=== PATIENT | male | born 1955 | race African-American/Black ===

== ENCOUNTER 2017-09-17 19:41 | Inpatient (IN) | payer OTHER ==
[2017-09-17] VITALS (8 sets, daily range): BP systolic 86–106; BP diastolic 39–66
[~2017-09-17] VITALS: Ht 188 cm; Wt 92.7 kg
--- NOTE | ~2017-09-17 | EKG ---
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 ischemia Compared to ECG 10/04/2015 02:22:42 No significant change was found Electronically Signed On 09-18-2017 8:10:55 CDT by Wade Alexander [email or web address] <ELECTRONICALLY SIGNED> By: Wade Alexander MD, FAC 09/18/17 0810 00 00 Wade Alexander MD, [facility] /EPI
--- NOTE | ~2017-09-17 | HC ---
[facility] [place] [address] CONSULTATION Name: CHRIS RENAE Room #: 202-P [facility] IN ..#: [id number] Admission: 09/17/17 Attend Phys: Vasiliy Flower DO Discharge: 09/20/17 Date of : 55 Report #: [id number] THIS REPORT FOR: //name// CC: Mark Gutierrezjaylyn Sharon DATE OF SERVICE: 09/17/2017 NEPHROLOGY CONSULTATION ATTENDING PHYSICIAN: Currently unknown. REASON FOR CONSULTATION: Elevated creatinine. HISTORY OF PRESENT ILLNESS: The patient is an extremely poor historian. He resides in a locked down unit for schizophrenic at [facility]. He has been found to have worsening and depressing mental status, and was brought to the Emergency Room. He was found at the [facility] rather hypotensive with systolic blood pressure poor in the 50s, given fluids, it is currently in the 80s and seen in the Emergency Room. He was quite confused, not really able to give any meaningful history. He is awake and alert, able to follow simple requests. PAST MEDICAL HISTORY: He apparently has history of schizophrenia, but he is also on lithium, so I am not sure what the psychiatric diagnosis might be. He has history of atrial flutter, hypertension, atrial fibrillation. He has got a colostomy. Some history of possible Parkinson disease. MEDICATIONS: At the facility includes clozapine 100 mg daily, diltiazem 120 mg daily, lisinopril 40 mg daily, metoprolol 75 mg daily, omeprazole 20 mg daily, Cogentin 1 mg daily, Depakote 1000 mg at bedtime, trazodone 150 mg at bedtime. He has Ceftin 250 mg b.i.d., lithium 150 mg b.i.d., Sinemet 25/100 t.i.d., Depakote 500 mg b.i.d. in addition to 1000 mg at bedtime previously reported, Haldol p.r.n., Ativan p.r.n. ALLERGIES: REPORTEDLY TO PENICILLIN. SOCIAL HISTORY: As far as we know, no cigarettes or alcohol. Retired. Resides at the facility in the locked down unit. REVIEW OF SYSTEMS: Really cannot be taken. The patient does not have any complaints. He is hungry. He is not short-winded. He is not having any chest pain, appears to be rather weak and the rest of the history really cannot be adequately taken. [facility] [address] [place] [address] CONSULTATION Name: CHRIS RENAE Tam Room #: 202-P [facility] IN M.R.#: [id number] Admission: 09/17/17 Attend Phys: Vasiliy Flower DO Discharge: 09/20/17 Date of : 55 Report #: [id number] PHYSICAL EXAMINATION: VITAL SIGNS: Blood pressure 80/40. SKIN: Slightly cool, slightly decreased turgor. SKELETAL: Well-developed, well-nourished, nonobese. HEENT: Extraocular movements are full. No scleral icterus. Hearing and vision intact. Mucous membranes are dry. NECK: The neck veins are flat. CHEST: Clear. HEART: Regular. Pulse is about 60. ABDOMEN: Soft and nontender. There is a colostomy bag in place. EXTREMITIES: Show no edema. LABORATORY DATA: Urinalysis showed clumps of white cells, loaded white cells and bacteria. Hemoglobin is 11, white count 8.1. There were no bands. Sodium 131, potassium 6.2, chloride 96, bicarbonate 13, BUN is 130, creatinine is 13.6. Lactic acid 1.2, AST very mildly elevated, ALT mildly depressed. Bilirubin is not elevated. The albumin is 3.5, glucose is 82. Anion gap is 22. ASSESSMENT AND PLAN: 1. Renal insufficiency. We have some data from a couple of years ago, which indicated a creatinine at that time was 1.3. He has been on lithium, but again, that was just 2 years ago and the creatinine was relatively normal, as was the BUN. Volume depletion is evident the etiology of which is not clear. He has a urinary infection, but does not appear to be overly septic without a big anion gap, without lactic acidosis, without bands on his white blood count, still he will be treated for sepsis with copious IV fluids and with broad-spectrum antibiotics. Cultures have been taken. Of course, he is on a high dose of lisinopril and that is probably also contributing to his renal insufficiency and the presence of marked volume depletion. The hyperkalemia should be reasonably easily treatable. There are absolutely no arrhythmias. VA interval is not prolonged and the QRS is not widened. High dose albuterol will be given along with some IV bicarbonate and fluid resuscitation underway. I will also give him some bicarbonate-containing fluids after he has received a couple of liters of saline for volume resuscitation. We will also need to rule out lithium toxicity, high lithium levels may even require dialysis, but these will be depending on the levels and we will go from there in that regard, and hopefully, we will see recovery with these measures. 2. History of hypertension. 3. History of schizophrenia. <ELECTRONICALLY SIGNED> By: Koffi Fink MD 09/25/17 1141 [id number] Koffi Fink MD /nt
[~2017-09-17 19:41] MED LIST: BENZTROPINE MES1 MG PO; CARDIZEM CD120 MG PO; CEFTIN 250 MG250 MG PO; CLOZAPINE100 M1 PO; CLOZAPINE200 MG PO; DEPAKOTE ER500 MG PO; LISINOPRIL5 MG PO; LITHIUM CARBON150 MG PO; LOPRESSOR25 PO; PRILOSEC20 MG PO; TRAZODONE 150150 M1 PO
[2017-09-17] MEDS ORDERED: SINEMET 25-1001 EAC1 PO (19:55)
[2017-09-17] MEDS ORDERED: DEPAKOTE ER500 MG PO (19:57)
[2017-09-17] MEDS ORDERED: CLOZAPINE100 M1 PO (19:58)
[2017-09-17] MEDS ORDERED: HALOPERIDOL 5 MG5 MG PO (20:01)
[2017-09-17] MEDS ORDERED: LORAZEPAM 22 MG/1 ML IV PUSH (20:03)
[2017-09-17 20:55] LABS: HEMATOCRIT 34.1 % (42.0-52.0); MCH 31.6 pg (26.0-34.0); MCHC 32.4 g/dL (28.0-37.0); MCV 97.8 fL (80.0-100.0); PLATELET COUNT 204 thou/uL (150-400); RBC 3.49 mil/uL (4.50-6.00); RDW 14.4 % (10.5-14.5); WBC 8.1 thou/uL (4.0-11.0)
[2017-09-17 20:55] LABS: URINE BILIRUBIN NEGATIVE (Negative); URINE BLOOD 3+ (Negative); URINE CLARITY CLEAR; URINE COLOR YELLOW; URINE GLUCOSE-RANDOM* TRACE (Negative); URINE KETONES TRACE (Negative); URINE NITRITE-REFLEX NEGATIVE (Negative); URINE PROTEIN (DIPSTICK) 1+ (Negative); URINE SPECIFIC GRAVITY >= 1.030 (1.005-1.035); URINE UROBILINOGEN 0.2 E.U./dl (0.2-1.0)
[2017-09-17 20:57] LABS: URINE LEUKOCYTES-REFLEX 2+ (Negative)
[2017-09-17 20:59] LABS: ANION GAP 22 mmol/L (7-16); BUN 130 mg/dL (7-18); CHLORIDE 96 mmol/L (98-107); CO2 13 mmol/L (21-32); CREATININE 13.6 mg/dL (0.7-1.3); GLUCOSE 91 mg/dL (74-106); SODIUM 131 mmol/L (136-145)
[2017-09-17 21:01] LABS: POTASSIUM 6.2 mmol/L (3.5-5.1)
[2017-09-17 21:03] LABS: CASTS None Seen /LPF (None Seen); MUCUS >6 Heavy strn/LPF (None Seen); SQUAMOUS 0-3 Few /LPF (0-3); URINE RBC 3-10 Few /HPF (0-2); URINE WBC-REFLEX >25 Many /HPF (0-5)
[2017-09-17 21:04] LABS: AMORPHOUS URATES Many /LPF (None Seen); WBC CLUMPS Moderate (None Seen)
[2017-09-17 21:08] LABS: ALBUMIN 3.5 g/dL (3.4-5.0); LIPASE 105 U/L (73-393); SGOT 56 U/L (15-37); SGPT 20 U/L (30-65); TOTAL BILIRUBIN 0.3 mg/dL (<0.1-1.0); TOTAL PROTEIN 8.2 g/dL (6.4-8.2); TROPONIN-I < 0.04 ng/mL (<0.06)
[2017-09-17 21:14] LABS: ABSOLUTE NEUTROPHILS 4.2 thou/uL (1.4-8.2)
[2017-09-17 21:15] LABS: OVALOCYTES 2+
[2017-09-17 21:16] LABS: ANISOCYTOSIS 2+; BURR CELLS OCCASIONAL; POIKILOCYTOSIS 1+
[2017-09-18] VITALS (28 sets, daily range): BP systolic 84–162; BP diastolic 40–95
[2017-09-18 08:11] LABS: HEMATOCRIT 31.4 % (42.0-52.0); HEMOGLOBIN 10.2 gm/dL (14.0-18.0); MCH 31.6 pg (26.0-34.0); MCHC 32.6 g/dL (28.0-37.0); MCV 96.8 fL (80.0-100.0); RBC 3.24 mil/uL (4.50-6.00); RDW 14.4 % (10.5-14.5); WBC 6.1 thou/uL (4.0-11.0)
[2017-09-18 08:23] LABS: ALBUMIN 2.9 g/dL (3.4-5.0); CALCIUM 8.5 mg/dL (8.5-10.1); PHOSPHORUS 8.2 mg/dL (2.5-4.9); POTASSIUM 4.8 mmol/L (3.5-5.1)
[2017-09-18 08:31] LABS: CREATININE 9.1 mg/dL (0.7-1.3)
[2017-09-18] MEDS ORDERED: IRON325 PO (10:33)
[2017-09-18] MEDS ORDERED: TYLENOL325 MG PO (10:35)
[2017-09-18] MEDS ORDERED: COLACE100 MG PO (10:36)
[2017-09-18] MEDS ORDERED: LOPERAMIDE 2 MG2 M1 PO (10:37)
[2017-09-18] MEDS ORDERED: MIRALAX17 GM PO (10:37)
[2017-09-18] MEDS ORDERED: LORAZEPAM 2MG TA2 M1 PO (10:38)
[2017-09-19] VITALS (19 sets, daily range): BP systolic 106–151; BP diastolic 54–111
[2017-09-19 04:42] LABS: ALBUMIN 2.8 g/dL (3.4-5.0); CALCIUM 8.6 mg/dL (8.5-10.1); PHOSPHORUS 3.8 mg/dL (2.5-4.9)
[2017-09-19 04:47] LABS: CREATININE 3.1 mg/dL (0.7-1.3)
[2017-09-20 00:01] VITALS: BP 157/85
[2017-09-20 00:54] VITALS: BP 141/76
[2017-09-20 05:15] VITALS: BP 142/84
[2017-09-20 06:18] LABS: HEMATOCRIT 29.8 % (42.0-52.0); HEMOGLOBIN 9.9 gm/dL (14.0-18.0); MCH 31.7 pg (26.0-34.0); MCHC 33.2 g/dL (28.0-37.0); MCV 95.6 fL (80.0-100.0); PLATELET COUNT 180 thou/uL (150-400); RBC 3.12 mil/uL (4.50-6.00); RDW 14.4 % (10.5-14.5); WBC 4.9 thou/uL (4.0-11.0)
[2017-09-20 06:35] LABS: ALBUMIN 2.4 g/dL (3.4-5.0); CALCIUM 8.3 mg/dL (8.5-10.1); PHOSPHORUS 2.4 mg/dL (2.5-4.9); POTASSIUM 5.6 mmol/L (3.5-5.1)
[2017-09-20 06:49] LABS: CREATININE 1.3 mg/dL (0.7-1.3)
[2017-09-20 07:33] VITALS: BP 127/69
[2017-09-20] MEDS ORDERED: BACTRIM DS TAB1 EACH PO (07:51)
[2017-09-20 08:46] LABS: ABSOLUTE NEUTROPHILS 1.8 thou/uL (1.4-8.2)
[2017-09-20 08:47] LABS: ANISOCYTOSIS 1+; ATYPICAL LYMPHS 1 %; OVALOCYTES 1+
[2017-09-20 11:14] VITALS: BP 122/80
== END 2017-09-20 14:07 | DRG 70 ==
LOC: ER 19:41 → EROBS 21:26 → ICU 21:26 → 2N 09-20 00:47
PROVIDERS: Emergency Medicine; Family Medicine; Hospitalist; Internal Medicine Nephrology; Nurse Practitioner Family
DX: G93.40 Encephalopathy, unspecified (principal); E43 Unspecified severe protein-calorie malnutrition; N17.9 Acute kidney failure, unspecified; N39.0 Urinary tract infection, site not specified; I48.92 Unspecified atrial flutter; I48.91 Unspecified atrial fibrillation; I10 Essential (primary) hypertension; G20 Parkinson's disease; E87.5 Hyperkalemia; D64.9 Anemia, unspecified; F20.9 Schizophrenia, unspecified; K59.00 Constipation, unspecified; E86.0 Dehydration; Z93.3 Colostomy status; Z79.899 Other long term (current) drug therapy; Z88.0 Allergy status to penicillin
CPT/HCPCS: 10078

== ENCOUNTER 2018-01-29 08:13 | Emergency (ER) | payer OTHER ==
[~2018-01-29] VITALS: Ht 157.5 cm; Wt 93.0 kg
[~2018-01-29 08:13] MED LIST changes: +BACTRIM DS TAB1 EACH PO; +COLACE100 MG PO; +HALOPERIDOL 5 MG5 MG PO; +IRON325 PO; +LOPERAMIDE 2 MG2 M1 PO; +LORAZEPAM 22 MG/1 ML IV PUSH; +LORAZEPAM 2MG TA2 M1 PO; +MIRALAX17 GM PO; +SINEMET 25-1001 EAC1 PO; +TYLENOL325 MG PO
[2018-01-29 08:54] LABS: PROTIME 10.6 Seconds (9.3-11.4)
[2018-01-29 08:59] LABS: HEMATOCRIT 31.2 % (42.0-52.0); HEMOGLOBIN 10.5 gm/dL (14.0-18.0); MCH 32.7 pg (26.0-34.0); MCHC 33.7 g/dL (28.0-37.0); RBC 3.22 mil/uL (4.50-6.00); RDW 14.6 % (10.5-14.5); WBC 8.3 thou/uL (4.0-11.0)
[2018-01-29] MEDS ORDERED: OCEAN104 ML NS (09:31)
== END 2018-01-29 11:45 ==
LOC: ER 08:13
PROVIDERS: Student in an Organized Health Care Education/Training Program
DX: R04.0 Epistaxis (principal); I48.91 Unspecified atrial fibrillation; I10 Essential (primary) hypertension; F20.9 Schizophrenia, unspecified; G20 Parkinson's disease; N40.0 Benign prostatic hyperplasia without lower urinary tract symptoms; F41.9 Anxiety disorder, unspecified; Z88.0 Allergy status to penicillin

== ENCOUNTER 2020-04-17 02:52 | Emergency (ER) | payer OTHER ==
[~2020-04-17] VITALS: Ht 188 cm; Wt 102.1 kg
[~2020-04-17 02:52] MED LIST changes: +OCEAN104 ML NS
[2020-04-17 03:54] LABS: ABSOLUTE NEUTROPHILS 5.1 thou/uL (1.4-8.2); BASOPHILS 0.8 % (0.0-2.0); EOSINOPHILS 1.3 % (0.0-3.0); HEMATOCRIT 30.5 % (42.0-52.0); HEMOGLOBIN 10.2 gm/dL (14.0-18.0); LYMPHOCYTES 31.3 % (24.0-44.0); MCH 32.5 pg (26.0-34.0); MCHC 33.4 g/dL (28.0-37.0); MCV 97.4 fL (80.0-100.0); MONOCYTES 8.8 % (1.0-8.0); PLATELET COUNT 212 thou/uL (150-400); POLYS 57.8 % (36.0-66.0); RBC 3.13 mil/uL (4.50-6.00); RDW 15.8 % (10.5-14.5); WBC 8.9 thou/uL (4.0-11.0)
[2020-04-17 04:00] LABS: CALCIUM 9.5 mg/dL (8.5-10.1); CREATININE 0.9 mg/dL (0.7-1.3); POTASSIUM 3.8 mmol/L (3.5-5.1)
[2020-04-17 04:06] LABS: ALBUMIN 3.2 g/dL (3.4-5.0); TOTAL BILIRUBIN 0.4 mg/dL (0.2-1.0)
[2020-04-17 05:07] LABS: URINE BILIRUBIN NEGATIVE (Negative); URINE BLOOD NEGATIVE (Negative); URINE CLARITY CLEAR; URINE COLOR YELLOW; URINE GLUCOSE-RANDOM* NEGATIVE (Negative); URINE KETONES NEGATIVE (Negative); URINE NITRITE-REFLEX NEGATIVE (Negative); URINE PROTEIN (DIPSTICK) NEGATIVE (Negative); URINE SPECIFIC GRAVITY >= 1.030 (1.005-1.035); URINE UROBILINOGEN 0.2 E.U./dl (0.2-1.0)
[2020-04-17 05:16] LABS: AMP/METHAMP Negative (Negative); BARBITURATES Negative (Negative); BENZODIAZEPINES POSITIVE (Negative); COCAINE Negative (Negative); METHADONE Negative (Negative); OPIATES Negative (Negative); PCP Negative (Negative)
[2020-04-17 05:28] LABS: URINE LEUKOCYTES-REFLEX 1+ (Negative)
[2020-04-17 05:31] LABS: HYALINE CASTS 0-3 Few /LPF (None Seen); MUCUS 0-3 Light strn/LPF (None Seen); SQUAMOUS >10 Many /LPF (0-3)
[2020-04-17 05:32] LABS: BACTERIA-REFLEX 1-9 Few /HPF (None Seen); CRYSTALS None Seen /LPF (None Seen); URINE RBC 0-2 Rare /HPF (0-2); URINE WBC-REFLEX >25 Many /HPF (0-5)
--- NOTE | 2020-04-18 07:43 | EKG ---
[facility] [place] [place] [address] ELECTROCARDIOGRAM REPORT Name: CHRIS RENAE Room #: REG [facility]#: [id number] Admission: 04/17/20 Attend Phys: Discharge: Date of : 55 Report #: [id number] THIS REPORT FOR: cc: Sincere Figueroa Eric DO Lundgren, Craig H. MD [facility] ~ THIS REPORT FOR: //name// 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 : 1955 Requested By: Nixon Kc Order Number: [id number] MD: Wade Alexander Measurements Intervals [place] Rate: 110 P: 1 LA: 174 QRS: -29 QRSD: 99 T: 103 QT: 341 QTc: 462 Interpretive Statements Sinus tachycardia Left ventricular hypertrophy Abnormal T, consider ischemia, lateral leads Compared to ECG 09/17/2017 20:01:11 T wave abnormality is much less pronounced Electronically Signed On 04-18-2020 7:43:12 CDT by Wade Alexander [email or web address] <ELECTRONICALLY SIGNED> By: Wade Alexander MD, FACC 04/18/20 0743 032 0 Wade Alexander MD, [facility] /EPI
--- NOTE | 2020-04-18 15:25 | NUR ---
ER GIVEN THE INFORMATION FOR [facility] IN [facility]. INFORMATION GIVEN TO MICHAEL COSME TO FAX TO BILL KNIFEMAN AT [facility]. THE INFORMATION TO HELP TRANSFER PATIENT [place] [facility] A [facility]. BILL KNIFEMAN .
--- NOTE | 2020-04-20 08:42 | HC ---
[facility] [place] [address] CONSULTATION Name: CHRIS RENAE Room #: REG [facility]#: [id number] Admission: 04/17/20 Attend Phys: Discharge: Date of : 55 Report #: [id number] THIS REPORT FOR: cc: Sincere Figueroa Eric DO Kerstein,Kelby Xie DO ~ DATE OF SERVICE: 04/19/2020 EMERGENCY ROOM CONSULTATION REQUESTING PHYSICIAN: Dr. Guan. CONSULTING PSYCHIATRIST: Kelby Lynn DO REASON FOR CONSULTATION: Psychosis. SOURCES OF INFORMATION: Physician sign-out chart review. The patient is a very poor historian and was laughing, not cooperative with giving information. Patient was seen with televideo device. CHIEF COMPLAINT: Altered mental status. HISTORY OF PRESENT ILLNESS: This is a 65-year-old black male, currently residing at [facility], which takes psychiatric patients. He has a history of schizophrenia, diagnosed at times with bipolar disorder. He does have a colostomy. EMS reported that he was seen at [facility] the day before he was brought to [facility] where he was discharged. It was unclear what workup he got there. The patient was frequently talking to unseen others. He refers to things as "[facility] is evil, evil live; live evil, evil." PAST MEDICAL HISTORY: The patient has an extensive medical history. Anemia, on iron replacement, atrial fibrillation, alcoholism, bowel obstruction, status post colostomy, Parkinson's disease, atrial flutter, history of suprapubic catheter, BPH. PSYCHIATRIC HISTORY: As above. HOME MEDICATIONS: Include lisinopril, metoprolol, benztropine, lithium carbonate 150 p.o. b.i.d. as lithium level was negative, carbidopa and levodopa, haloperidol 5 mg p.o. t.i.d., lorazepam, ferrous sulfate, acetaminophen, loperamide, polyethylene glycol, omeprazole, Depakote, Clozaril. The patient's nursing facility later provided a med list, which nurse read was Clozaril 100 mg p.o. in a.m. and 300 mg in the evening, lamotrigine 25 mg p.o. at bedtime, trazodone 50 mg p.o. at bedtime. So I do not think the initial medication list was reliable. [facility] [address] [place] [address] CONSULTATION Name: CHRIS RENAE Tam Room #: REG JESSI Caraballo#: [id number] Admission: 04/17/20 Attend Phys: Discharge: Date of : 55 Report #: [id number] Weight 102.06 kg, BMI 28.9. His physical exam was positive for the colostomy with soft brown stool. Labile mood was noticed in the ER. DIAGNOSTIC AND LABORATORY DATA: EKG was performed in the ER, which I will review for good measure in this report. On 04/17/2020, rate was 110, IN interval 174 milliseconds, QT 341 milliseconds, QTc 462 milliseconds, read as sinus tachycardia, left ventricular hypertrophy. Dr. Alexander read the EKG. Urine culture was started this admission, no growth on final. Laboratories in the ER, on CBC: H and H 10.2 and 30.5, white count 8.9, platelet count 212. Chemistries: Sodium 141, potassium 3.9, chloride 106, bicarbonate 22, anion gap 13, BUN 22, creatinine 0.9, estimated GFR 103, glucose 95, calcium 9.5, total bilirubin 0.4, AST 42, ALT 45, alkaline phosphatase 63, total protein 8.0, albumin 3.2. Urinalysis had some positives including bacteria, but culture is negative. Urine drug screen interestingly was positive for benzodiazepines. [place] level less than 0.1. Alcohol less than 10. Marijuana screen was negative. COVID-19 PCR serology was also negative. No imaging done this admission; however, on review in 2016, he had a head CT and then head MRI, which was noted for global atrophy with very subtle white matter ischemic change. PHYSICAL EXAMINATION: Lying on gurney. MENTAL STATUS EXAMINATION: This is a well-developed, unkempt black male, appearing stated age. Attention impaired. Concentration impaired. Speech lacking frequently at times, intermittently giving appropriate 1 word answers and then digressing into a laughing fit. Thought process nonlinear, tangential. Thought content, difficult to discern what he is focusing on. He denied SI or HI. I really could not ascertain if he was having auditory or visual hallucinations, but I would be surprised. Memory impaired, insight impaired, judgment impaired. Fund of knowledge below average. FORMULATION: A 65-year-old black male brought to the ER with psychotic decompensation. Strong suspicion of medication noncompliance. 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 b.i.d., then increase to 25-50 mg a day. The patient unfortunately does not have a surrogate decision maker as best I can tell and this is going to be an ongoing issue. The patient will benefit from a psychiatric hospitalization even if it is involuntary as I do not feel he can manage his affairs and protect himself at this time. I discussed with the patient's waste disposal plant operator and assistant clinical director, Juliet Romero. Ms. Romero is in agreement with Research screen for placement at this time. I would like to see how he does with the Clozaril titration and we will plan to increase the [facility] [address] [place] [address] CONSULTATION Name: BATOOLCHRIS [facility] [id number] Admission: 04/17/20 Attend Phys: Discharge: Date of : 55 Report #: [id number] dose for tomorrow morning. About 35 minutes spent on this evaluation. <ELECTRONICALLY SIGNED> By: Kelby Lynn DO 04/20/20 0842 18 210 Kelby Lynn DO /nt
[2020-04-22] MEDS ORDERED: CLOZARIL25 MG PO (15:45)
[2020-04-22 19:20] VITALS: BP 115/87
== END 2020-04-22 19:55 ==
LOC: ER 02:52
PROVIDERS: Emergency Medicine
DX: F20.9 Schizophrenia, unspecified (principal); R45.1 Restlessness and agitation; F41.9 Anxiety disorder, unspecified; I10 Essential (primary) hypertension; I48.91 Unspecified atrial fibrillation; Z86.2 Personal history of diseases of the blood and blood-forming organs and certain disorders involving the immune mechanism; Z79.899 Other long term (current) drug therapy; Z88.0 Allergy status to penicillin; Z20.828 Contact with and (suspected) exposure to other viral communicable diseases

== ENCOUNTER 2020-05-01 22:01 | Inpatient (IN) | payer OTHER ==
[~2020-05-01] VITALS: Ht 185.4 cm; Wt 91.9 kg
--- NOTE | ~2020-05-01 | HC ---
[facility] [place] [address] CONSULTATION Name: CHRIS RENAE Room #: [facility] IN M.R.#: [id number] Admission: 05/02/20 Attend Phys: Martinez Alonzo MD Discharge: Date of : 55 Report #: [id number] THIS REPORT FOR: cc: Sincere Figueroa,Sincere Landrum,Izzy Davis MD ~ REASON FOR CONSULTATION: Elevated creatinine. REASON FOR PRESENTATION: Altered mental status and low blood sugar. HISTORY OF PRESENT ILLNESS: This is obtained from the medical chart. The patient is not able to provide me with any history. He resides in schizophrenia unit. He has a suprapubic catheter and a colostomy. He presented yesterday with altered mental status and was found to have an extremely low blood sugar and acute kidney injury with a creatinine value of 5.8 and a potassium of 6.1. He was significantly acidotic. Unfortunately, history is very limited given the patient's current mental status; however, I would note that the patient had a similar episode back in 2018 where he was found to have a creatinine value of 13 on his arrival. PAST MEDICAL HISTORY: 1. Schizophrenia. 2. Atrial flutter. 3. Hypertension. 4. Status post colostomy. 5. Parkinson disease. ALLERGIES: REPORTED TO PENICILLIN. SOCIAL HISTORY: As far as we know, no drug or alcohol abuse. He resides in a locked down facility. REVIEW OF SYSTEMS: Completely unobtainable given the patient's current mental status. FAMILY HISTORY: Completely unobtainable given the patient's current mental status. LISTED MEDICATIONS: 1. Lisinopril. 2. Bactrim. 3. Clonazepam. 4. Haldol. 5. Cleary. 6. Carbidopa/levodopa. [facility] [address] [address] CONSULTATION Name: CHRIS RENAE Room #: 240-P [facility] IN M.R.#: [id number] Admission: 05/02/20 Attend Phys: Martinez Alonzo MD Discharge: Date of : 55 Report #: [id number] PHYSICAL EXAMINATION: GENERAL: He is intubated. VITAL SIGNS: Blood pressure is 89/55. HEAD AND NECK: No jugular venous distention. Very dry mucous membrane. CHEST: Decreased air entry bilaterally. CARDIOVASCULAR: No rub. ABDOMEN: Soft with colostomy. LOWER EXTREMITIES: No edema. LABORATORY VALUES: Hemoglobin 10.8. Sodium 146, potassium 6.1, chloride 113, carbon dioxide 19, BUN is 100, creatinine is 5.5. Calcium is 10.2. ASSESSMENT, IMPRESSION AND PLAN: 1. Acute kidney injury. 2. Hypoglycemia. 3. Hyperkalemia. 4. Severe hypotension with sepsis. This all seems to be septic shock with multiple potential sources. Currently, the patient is maintained on D5W with bicarbonate for his acidosis. I will treat his hyperkalemia. His creatinine has stabilized. 5. Continue with pressor supports. 6. Broad-spectrum antibiotic coverage. 7. Continue to watch electrolytes, urine output, volume status. 8. Appropriate antibiotic coverage as per the primary team. 9. Vent support per Pulmonary. 10. Rule out sepsis. 11. We will continue to follow. By: 0859 Izzy Whipple MD /nt
--- NOTE | ~2020-05-01 | EMS ---
[address] [address] EMS Patient Care Report Name: CHRIS RENAE Room #: 240-P ADM IN M.R.#: [id number] Admission: 05/02/20 Attend Phys: Martinez Alonzo MD Discharge: Date of : 55 Report #: [id number] THIS REPORT FOR: //name// Report Transmitted: 05/05/2020 20:03 EMS Care Summary [place], [place]/[facility] Incident [id number] @ 05/01/2020 21:12 Incident Location [address] [place] [address] Patient CHRIS A BATOOL Male, 65 Years 1955 Patient Address [address] [place], [place] [id number] Patient History None Reported, Patient Allergies No known allergies, Patient Medications None Reported, Chief Complaint Unconscious, hypoxia, hypotension, hypoglycemia Disposition Transported Lights/[place] Dispatch Reason Breathing Problem Transported To [facility] Narrative Called to the scene for an unconscious. Upon arrival, pt was lying in his bed, unresponsive, hypoxic and hypotensive. The [facility] RN reported he has been off for several days and they had drawn some labs. He was immediately moved to the EMS [place] [id number] EMS Patient Care Report Name: CHRIS RENAE Room #: 240-P ADM IN M.R.#: [id number] Admission: 05/02/20 Attend Phys: Martinez Alonzo MD Discharge: Date of : 55 Report #: [id number] cot and loaded into the ambulance w/o incident. Vitals obtained and 4 lead. O2 via NRB. Attempt IV x 2. D-stick. Glucagon. Attempt IV x 2. repeat check of D-stick. IO, flushed & secured. D10W. En route: pt did respond to pain. RR to [facility]. D-stick repeated. Arrived: pt taken to ER #7 and moved to their bed w/o incident. Pt care & report to ER staff. Initial Vitals @21:34P: 57,BP: 57/40,Glucose: -1,SpO2: 47, @21:48P: 167, @21:28P: 60,SpO2: 68, @21:46P: 61,BP: 184/155, @21:55P: 62,SpO2: 40, @21:50P: 174, @21:29P: 67,R: 18,BP: 57/38,Pain: 0/10,GCS: 6,Glucose: 22,SpO2: 71,Revised Trauma: 8, @21:48P: 64,R: 18,Pain: 0/10,GCS: 7,Glucose: 188,SpO2: 93, @21:37P: 59, Assessments @21:22MENTAL:Unresponsive,SKIN:HEENT:LUNG SOUNDS:ABDOMEN:PELVIS//GI:EXTREMITIES:Left Arm: No Abnormalities,Right Arm: No Abnormalities,Left Leg: No Abnormalities,Right Leg: No Abnormalities,PULSE:Radial: Absent,Femoral: 1+ Thready,NEURO:No Abnormalities, Impression Altered Mental Status Procedures @21:25Oxygen FlowRate: 15 Device: Non Re-breather Mask (NRB) Response: ImprovedSucceeded@21:22ALS AssessmentResponse: UnchangedSucceeded@21:24StretcherResponse: Unchanged@21:283-Lead ECGResponse: UnchangedSucceeded@21:45Normal Saline (.9% NaCl) 250cc (EZ-IO (Yellow 45mm)) Site: XN-Bckamgv-VrinSwxjorsq: UnchangedSucceeded@21:25Saline Lock cc (18 ga) Site: Antecubital-LeftResponse: UnchangedFailed@21:29Saline Lock cc (18 ga) Site: Antecubital-RightResponse: UnchangedFailed@21:33Saline Lock cc (18 ga) Site: External Jugular-LeftResponse: UnchangedFailed@21:45Saline Lock cc (18 ga) Site: External Jugular-RightResponse: UnchangedFailed@21:33Glucagon - 1 Milligrams (mg) - Intramuscular (IM)Response: Improved@21:48Dextrose 10% - 250 Milliliters (ml) - Intraosseous (IO)Response: Improved Timeline 21:10,Call Received 21:10,Dispatch Notified 21:12,Dispatched 21:13,En Route 21:19,On Scene [address] [address] EMS Patient Care Report Name: CHRIS RENAE Room #: 240-P [facility] IN ..#: [id number] Admission: 05/02/20 Attend Phys: Martinez Alonzo MD Discharge: Date of : 55 Report #: [id number] 21:22,At Patient 21:22,ALS Assessment,Response: UnchangedSucceeded, 21:24,Stretcher,Response: Unchanged 21:25,Oxygen FlowRate: 15 Device: Non Re-breather Mask (NRB) Response: ImprovedSucceeded, 21:25,Saline Lock cc 18 ga Site: Antecubital-Left,Response: UnchangedFailed, 21:28,BP: / M,PULSE: 60,RR: R,SPO2: 68 Ox,ETCO2: ,BG: ,PAIN: ,GCS: , 21:28,3-Lead ECG,Response: UnchangedSucceeded, 21:29,Saline Lock cc 18 ga Site: Antecubital-Right,Response: UnchangedFailed, 21:29,BP: 57/38 M,PULSE: 67,RR: 18 R,SPO2: 71 Ox,ETCO2: ,B,PAIN: 0,GCS: 6, 21:33,Saline Lock cc 18 ga Site: External Jugular-Left,Response: UnchangedFailed, 21:33,Glucagon - 1 Milligrams (mg) - Intramuscular (IM),Response: Improved 21:34,BP: 57/40 M,PULSE: 57,RR: R,SPO2: 47 Ox,ETCO2: ,BG: -1,PAIN: ,GCS: , 21:37,BP: / M,PULSE: 59,RR: R,SPO2: Ox,ETCO2: ,BG: ,PAIN: ,GCS: , 21:45,Saline Lock cc 18 ga Site: External Jugular-Right,Response: UnchangedFailed, 21:45,Normal Saline (.9% NaCl) 250cc EZ-IO (Yellow 45mm) Site: SQ-Lahydpb-Aoit,Response: UnchangedSucceeded, 21:46,BP: 184/155 M,PULSE: 61,RR: R,SPO2: Ox,ETCO2: ,BG: ,PAIN: ,GCS: , 21:48,Dextrose 10% - 250 Milliliters (ml) - Intraosseous (IO),Response: Improved 21:48,BP: / M,PULSE: 167,RR: R,SPO2: Ox,ETCO2: ,BG: ,PAIN: ,GCS: , 21:48,BP: / M,PULSE: 64,RR: 18 R,SPO2: 93 Ox,ETCO2: ,B,PAIN: 0,GCS: 7, 21:50,BP: / M,PULSE: 174,RR: R,SPO2: Ox,ETCO2: ,BG: ,PAIN: ,GCS: , 21:51,Depart Scene 21:55,BP: / M,PULSE: 62,RR: R,SPO2: 40 Ox,ETCO2: ,BG: ,PAIN: ,GCS: , 21:57,At Destination 22:16,Call Closed Disclaimer v1.1 Copyright 2020 [employer] This EMS Care Summary contains data elements from the applicable legal record (which may be displayed differently). It is designed to provide pertinent information for the following purposes: continuity of care, clinical quality, and state data reporting. The complete legal record is available to ED staff and administrators of the receiving hospital in [employer]'s Patient Tracker. All data is provided "as is."
--- NOTE | ~2020-05-01 | HC ---
[facility] [place] [address] CONSULTATION Name: CHRIS RENAE Room #: 240- ADM IN ..#: [id number] Admission: 05/02/20 Attend Phys: Martinez Alonzo MD Discharge: Date of : 55 Report #: [id number] THIS REPORT FOR: cc: Sincere Figueroa,Sincere Massey,Isaías Keenan MD ~ DATE OF SERVICE: 05/03/2020 HISTORY OF PRESENT ILLNESS: This is a 65-year-old male patient who is unable to provide any history at all. I talked to Dr. Ulloa yesterday and I talked to the nurses looking after this patient. There is no family here and they are trying to reach them. Therefore, history is entirely from the record. This patient has been admitted with numerous problems and he has been seen by multiple consultants. He presented to Emergency Room with what looks like low blood sugar and low blood pressure. He has renal dysfunction, for which Nephrology was consulted. His blood sugar went as low as 22. Record also indicates that this is probably going on for some time. REVIEW OF SYSTEMS: Positive for anemia. Apparently, he has a history of atrial fibrillation and alcohol abuse. He has a history of schizophrenia and psychosis. He is on multiple psychiatric medications including Haldol. He also has a history of Parkinson's disease. I am not sure how established that history is. He takes 25/100 one p.o. b.i.d. of anti-Parkinson medication. He does have a history of anxiety. He is on multiple psychiatric medications. It does look like he has a history of hypertension and he is on medications for that. A 14-point review of system was attempted and this is a relevant 14-point review of system. PAST MEDICAL HISTORY: Positive for Parkinson disease, but I do not know how established the diagnosis is. FAMILY HISTORY: Unremarkable. SOCIAL HISTORY: He does not drink alcohol or smoke. PHYSICAL EXAMINATION: Indicates he is sedated, but he wakes up to painful stimuli. He does not follow any commands. He does move his lower extremities while scratching his feet, but I am not sure it is upgoing plantar or voluntary movements. His reflexes could not be elicited. Nurses noted that he might be stiff, does not look like too stiff on my examination. He does not appear to have meningeal sign. That is all the examination I could carry out. He is intubated and he is on multiple medications from ID perspective. Last PTT, INR was unremarkable. [facility] [address] [place] [address] CONSULTATION Name: CHRIS RENAE Room #: 240-P [facility] IN [facility]#: [id number] Admission: 05/02/20 Attend Phys: Martinez Alonzo MD Discharge: Date of : 55 Report #: [id number] IMPRESSION: This patient probably has encephalopathy. He probably has some baseline dementia also. In the absence of any history from the family, that is difficult to confirm. I will get an EEG done. We will look at the ID evaluation. We will go ahead and start him on home dose of Sinemet. Depending upon what this workup show, we will see if any other workup needs to be done in this patient. Thank you very much for this referral. By: 1320 1758 Isaías Crabtree MD /nt
--- NOTE | ~2020-05-01 | EEG ---
[facility] [place] [address] ELECTROENCEPHALOGRAM Name: CHRIS RENAE Room #: 240-P [facility] IN M.R.#: [id number] Admission: 05/02/20 Attend Phys: Martinez Alonzo MD Discharge: Date of : 55 Report #: [id number] THIS REPORT FOR: //name// CC: Sincere Alonzo DATE OF SERVICE: 05/03/2020 INDICATION: The patient's EEG was done to evaluate the patient for altered mental status. Background activity in this patient's EEG is about 7-8 Hz and 30 microvolt. Photic stimulation is unremarkable. The patient's EEG appeared to be intermixed with theta range slowing on both sides. IMPRESSION: This patient's EEG is intermixed with theta range slowing on both sides. That is a nonspecific abnormality, which can occur with encephalopathy, effect of psychotropic medication, dementia, etc. Since the patient's EEG shows reasonable activity, although it is abnormal. By: 31 39 Isaías Crabtree MD /nt
[~2020-05-01 22:01] MED LIST changes: +CLOZARIL25 MG PO
[2020-05-01 22:12] VITALS: BP 81/39
[2020-05-01 22:15] LABS: BE(vivo) -13.2 mmol/L (-2 to +3); HCO3 13.3 mmol/L (22.0-26.0); PCO2 32.6 mmHg (35.0-45.0); PO2 91.2 mmHg (80.0-100.0); sO2 95.6 % (92.0-98.0)
[2020-05-01 22:16] LABS: pH 7.227 (7.360-7.450)
[2020-05-01 23:02] LABS: BASOPHILS 0.4 % (0.0-2.0); EOSINOPHILS 0.2 % (0.0-3.0); HEMATOCRIT 34.3 % (42.0-52.0); HEMOGLOBIN 10.8 gm/dL (14.0-18.0); LYMPHOCYTES 5.9 % (24.0-44.0); MCH 30.8 pg (26.0-34.0); MCHC 31.5 g/dL (28.0-37.0); MCV 97.8 fL (80.0-100.0); MONOCYTES 3.1 % (1.0-8.0); PLATELET COUNT 192 thou/uL (150-400); POLYS 90.4 % (36.0-66.0); RBC 3.51 mil/uL (4.50-6.00); RDW 15.6 % (10.5-14.5); WBC 9.9 thou/uL (4.0-11.0)
[2020-05-01 23:09] LABS: ALBUMIN 2.7 g/dL (3.4-5.0); CREATININE 5.8 mg/dL (0.7-1.3); TOTAL BILIRUBIN 0.2 mg/dL (0.2-1.0); TOTAL PROTEIN 7.3 g/dL (6.4-8.2)
[2020-05-01 23:15] LABS: POTASSIUM 6.1 mmol/L (3.5-5.1)
[2020-05-01 23:22] LABS: URINE BILIRUBIN NEGATIVE (Negative); URINE BLOOD NEGATIVE (Negative); URINE CLARITY CLEAR; URINE COLOR YELLOW; URINE GLUCOSE-RANDOM* NEGATIVE (Negative); URINE KETONES NEGATIVE (Negative); URINE LEUKOCYTES-REFLEX NEGATIVE (Negative); URINE NITRITE-REFLEX NEGATIVE (Negative); URINE PROTEIN (DIPSTICK) NEGATIVE (Negative); URINE SPECIFIC GRAVITY >= 1.030 (1.005-1.035); URINE UROBILINOGEN 0.2 E.U./dl (0.2-1.0)
[2020-05-01 23:47] LABS: AMP/METHAMP Negative (Negative); BARBITURATES Negative (Negative); BENZODIAZEPINES Negative (Negative); COCAINE Negative (Negative); METHADONE Negative (Negative); OPIATES Negative (Negative); PCP Negative (Negative)
[2020-05-02] VITALS (63 sets, daily range): BP systolic 75–147; BP diastolic 39–86
[2020-05-02 04:55] LABS: BE(vivo) -10.9 mmol/L (-2 to +3); HCO3 16.7 mmol/L (22.0-26.0); PCO2 44.1 mmHg (35.0-45.0); PO2 255.6 mmHg (80.0-100.0); sO2 99.4 % (92.0-98.0)
[2020-05-02 04:56] LABS: pH 7.197 (7.360-7.450)
[2020-05-02 06:07] LABS: FIBRINOGEN 326.1 mg/dL (210-360); INR 1.1; PROTIME 10.8 Seconds (9.3-11.4)
[2020-05-02 06:13] LABS: CALCIUM 10.2 mg/dL (8.5-10.1); CREATININE 5.5 mg/dL (0.7-1.3)
[2020-05-02 06:17] LABS: POTASSIUM 6.1 mmol/L (3.5-5.1)
--- NOTE | 2020-05-02 07:36 | EKG ---
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: bernice : 1955 Requested By: Jose Guan Order Number: [id number] MD: Wade Alexander Measurements Intervals [place] Rate: 62 P: 69 TN: 185 QRS: 27 QRSD: 116 T: 104 QT: 449 QTc: 456 Interpretive Statements Sinus rhythm Probable LVH with secondary repol abnrm Anterior ST elevation, probably due to LVH Compared to ECG 04/17/2020 03:21:08 Sinus tachycardia no longer present Electronically Signed On 05-02-2020 7:36:42 CDT by Wade Alexander [email or web address] <ELECTRONICALLY SIGNED> By: Wade Alexander MD, FACC 05/02/20 0736 05 05 Wade Alexander MD, [facility] /EPI
--- NOTE | 2020-05-02 08:00 | NUR ---
PT HAS IO ACCESS TO LEFT SHOULDER. SITE IS WNL. NO REDNESS OR DRAINAGE. FLUSHES WITHOUT DIFFICULTY.
[2020-05-02 08:27] LABS: HEMATOCRIT 37.2 % (42.0-52.0); HEMOGLOBIN 11.8 gm/dL (14.0-18.0); MCH 30.5 pg (26.0-34.0); MCHC 31.8 g/dL (28.0-37.0); RBC 3.87 mil/uL (4.50-6.00); RDW 15.6 % (10.5-14.5); WBC 17.3 thou/uL (4.0-11.0)
[2020-05-02 08:40] LABS: CALCIUM 10.2 mg/dL (8.5-10.1); CREATININE 5.2 mg/dL (0.7-1.3); POTASSIUM 5.4 mmol/L (3.5-5.1)
--- NOTE | 2020-05-02 09:06 | NUR ---
PT ADMITTED FOR ER TO ICU 240. PT UNRESPONSIVE WITH BS 28, DEXTROSE GIVEN WITH NO MEANINGUL RESPONSE, DOES HAVE COUGH AND GAG. PROPOFOL SLOW GTT IN FOR VENT MANAGEMENT. ABG CALLED TO DR BONILLA. ORDERS RECIEVED, INCREASED RR AND TV TO 550.MAINT IV INFUSING. UO LOW.DR HERNANDEZ AWARE. CONT PLAN OF CARE.
--- NOTE | 2020-05-02 09:50 | NUR ---
ATTEMPT X4 TO CALL [facility] TO GET PTS EMERGENCY CONTACT INFORMATION TO OBTAIN CONSENT FOR PICC LINE.
--- NOTE | 2020-05-02 12:54 | NUR ---
VAT CONSULTED FOR A CL FOR THIS PT IN ICU. 6FRTL IJ PLACED AND RELEASED FOR USE AFTER CXR. PLEASE SEE NI FOR DETAILS
--- NOTE | 2020-05-02 14:59 | NUR ---
TALKED WITH DR. PEREZ REGUARDING RECURRENT HYPOGLYCEMIA. NO NEW ORDERS CONTINUE WHAT WE ARE DOING.
--- NOTE | 2020-05-02 16:29 | NUR ---
INITIAL ASSESSMENT: SW reviewed chart and spoke with nursing. Pt was admitted from [facility] due to AMS/hypoglycemia/acute respiratory failure. Pt is in the ICU and is intubated at this time. Pt's first COVID test was negative. Repeat test is pending. Pt is unable to give consent at this time. No contact info listed for pt. MEDARDO placed call to [facility] and spoke with Chiara, claims vice president. Pt has listed contact of [facility] [employer] (financial brokers) . SW left voice message for Cittadino. Pt with hx of bipolar and schizophrenia. Pt had recent stay at [facility] and returned to [facility] on 04/22. MEDARDO is following to assist as needed with discharge planning.
--- NOTE | 2020-05-02 17:00 | NUR ---
DR. PEREZ STATES TO TALK WITH HOSPITALIST REGUARDING BLOOD GLUCOSE.
--- NOTE | 2020-05-02 18:12 | NUR ---
ATTEMPTED TO CALL ANSWERING SERVICE FOR ENDOCRINOLOGY. THEY STATE THAT HOSPITALIST IS PUBLIC RELATIONS MANAGER FOR TODAY. PAGED DR NOEMI BERGERING BLOOD GLUCOSE
--- NOTE | 2020-05-02 18:22 | NUR ---
PT NOT PROGRESSING TOWARDS GOALS. PT IS STILL OBTUNDED. PT HAS A TREMOR. I HAVE BEEN TREATING HYPOGLYCEMIA WITH AMPS OF D50 TODAY. PT ON D10 GTT @ 50 AND BICARB GTT. TRENDING LACTIC ACID. LEVOPHED GTT FOR MAP >60, CURRENTLY AT 12 MCG/MIN. ATTEMPTED SEVERAL TIMES TO GET AHOLD OF [facility] TODAY WITH NO LUCK. CLOAK ROOM ATTENDANT ATTEMPTED WELL.
--- NOTE | 2020-05-02 18:40 | NUR ---
TALKED WITH DR. FRANKLIN. D10 GTT RATE INCREASED FROM 50ML/HR TO 75ML/HR. BICARB GTT RATE DECREASED FROM 100ML/HR TO 75 ML/HR
--- NOTE | 2020-05-02 22:29 | NUR ---
PT BITING ON ETT TUBE. UPPER EXTREMETY TREMORS NOTED. INCREASED PROPOFOL GTT.
[2020-05-03] VITALS (81 sets, daily range): BP systolic 73–142; BP diastolic 35–81
--- NOTE | 2020-05-03 03:02 | NUR ---
PT IS LIGHTLY SEDATED WITH PROPOFOL ON THE VENT. HE IS SLIGHTLY ARROUSABLE TO VERBAL OR TACTILE STIMULI. DOES NOT FOLLOW COMMANDS. POSITIVE GAG REFLEX. AFEBRILE. COVID TEST NEGATIVE. NOTIFIED DR JIN BARBA. ORDER RECEIVED TO D/C ISOLATION. LEVOPHED GTT FOR HYPOTENSION; RATE INCREASED TO KEEP MAP >60. GOOD URINE OUTPUT VIA SANCHEZ. PT CONTINUES TO HAVE LOW BLOOD SUGARS. SODIUM BICARB AND D10 IVF INFUSING ORDERED. D5 GIVEN INDICATED FOR BG < 70. OG TO LIS WITH MINIMAL OUTPUT. BILATERAL SOFT WRIST RESTRAINTS REMAIN IN PLACE. NOT PROGRESSING WELL TOWARD POC GOALS. .
[2020-05-03 05:22] LABS: BE(vivo) -1.5 mmol/L (-2 to +3); HCO3 21.5 mmol/L (22.0-26.0); PCO2 30.8 mmHg (35.0-45.0); PO2 140.2 mmHg (80.0-100.0); pH 7.461 (7.360-7.450); sO2 98.9 % (92.0-98.0)
[2020-05-03 05:48] LABS: HEMATOCRIT 33.7 % (42.0-52.0); HEMOGLOBIN 10.7 gm/dL (14.0-18.0); MCH 30.4 pg (26.0-34.0); MCHC 31.9 g/dL (28.0-37.0); MCV 95.4 fL (80.0-100.0); PLATELET COUNT 192 thou/uL (150-400); RBC 3.53 mil/uL (4.50-6.00); RDW 15.1 % (10.5-14.5); WBC 23.7 thou/uL (4.0-11.0)
[2020-05-03 06:00] LABS: ALBUMIN 2.4 g/dL (3.4-5.0); CALCIUM 9.3 mg/dL (8.5-10.1); PHOSPHORUS 2.8 mg/dL (2.5-4.9); POTASSIUM 5.1 mmol/L (3.5-5.1)
[2020-05-03 06:05] LABS: CREATININE 3.6 mg/dL (0.7-1.3)
[2020-05-03 09:28] LABS: ABSOLUTE NEUTROPHILS 19.9 thou/uL (1.4-8.2); PLATELET ESTIMATE NORMAL
--- NOTE | 2020-05-03 10:29 | NUR ---
Nutrition: REC start enteral feeds of Jevity 1.5 to reach 55 mL/hr.
--- NOTE | 2020-05-03 13:02 | NUR ---
MEDARDO reviewed chart and spoke with attending physician. Pt remains in the ICU. Enhanced Isolation precautions have been discontinued. Neuro consulted. Pt is on IV abx. Pt to have lumbar puncture to r/o meningitis. MEDARDO faxed clinical info to [facility] for review and spoke with Chiara. Pt was a full code at the facility and has been ambulatory. MEDARDO received voice message from [facility] christ[facility]. MEDARDO returned call and left voice message. MEDARDO is following to assist as needed with discharge planning.
--- NOTE | 2020-05-03 17:56 | NUR ---
PT MORE ALERT TODAY. WAKES UP ON SEDATION, MOUTHING ET TUBE. OPENS EYES WHEN NAME IS SAID. FOLLOWED COMMANDS @ 1600 ASSESSMENT TO GRASP WITH RIGHT HAND. EEG COMPLETED TODAY. PLAN FOR LP TOMORROW. HOLD HEPARIN TONIGHT AND IN AM.
[2020-05-04] VITALS (71 sets, daily range): BP systolic 81–143; BP diastolic 47–85
[2020-05-04 02:57] LABS: ABSOLUTE NEUTROPHILS 18.4 thou/uL (1.4-8.2); BASOPHILS 0.1 % (0.0-2.0); HEMATOCRIT 30.9 % (42.0-52.0); HEMOGLOBIN 9.9 gm/dL (14.0-18.0); LYMPHOCYTES 4.3 % (24.0-44.0); MCH 30.5 pg (26.0-34.0); MCHC 32.2 g/dL (28.0-37.0); MCV 94.8 fL (80.0-100.0); PLATELET COUNT 205 thou/uL (150-400); POLYS 92.6 % (36.0-66.0); RBC 3.26 mil/uL (4.50-6.00); WBC 19.9 thou/uL (4.0-11.0)
[2020-05-04 03:18] LABS: APTT 31.1 Seconds (24.5-32.8); PROTIME 10.7 Seconds (9.3-11.4)
[2020-05-04 03:25] LABS: ALBUMIN 2.2 g/dL (3.4-5.0); CALCIUM 8.9 mg/dL (8.5-10.1); CREATININE 2.8 mg/dL (0.7-1.3); PHOSPHORUS 3.3 mg/dL (2.5-4.9); POTASSIUM 5.1 mmol/L (3.5-5.1)
[2020-05-04 05:19] LABS: BE(vivo) 3.6 mmol/L (-2 to +3); HCO3 27.7 mmol/L (22.0-26.0); PCO2 40.2 mmHg (35.0-45.0); PO2 151.6 mmHg (80.0-100.0); pH 7.456 (7.360-7.450)
--- NOTE | 2020-05-04 06:29 | NUR ---
ASSUMED CARE OF PATIENT AT 1900. VSS, AFEBRILE. MEDS TITRATED FOR SEDATION AND BP MANAGEMENT. SERIAL LACTIC ACIDS DRAWN. EXCELLENT URINE OUTPUT. WORKING TOWARDS POC GOALS.
--- NOTE | 2020-05-04 15:01 | NUR ---
1345 PT WENT TO RADIOLOGY WITH RN, RT AND TYPEWRITER REPAIRER X2 FOR LUMBAR PUNCTURE. PT TRANSFERRED TO RADIOLOGY TABLE IN PRONE POSITION. DR. TALBERT PREFORMED LP. VS REMAINED STABLE DURING PROCEEDURE. NO BANDAID PLACED AT PUNCTURE SITE. 1435 PT TAKEN VIA BED BACK TO ROOM IN ICU. SPECIMENS COLLECTED AND TAKEN TO LAB BY CENTRAL OFFICE INSPECTOR.
[2020-05-04 15:59] LABS: CSF CLARITY TURBID; CSF COLOR RED; VOLUME 12.5 ml
[2020-05-04 16:03] LABS: CSF RBC 4520 /mm3
[2020-05-04 16:12] LABS: CSF GLUCOSE 106 mg/dL (40-70); CSF PROTEIN 78 mg/dL (15-45)
[2020-05-04 16:31] LABS: CSF EOSINOPHILS 1 %; CSF LYMPHOCYTES 11 % (40-80); CSF POLYS 86 %
[2020-05-04 16:34] LABS: CSF WBC 34 /mm3 (0-10)
--- NOTE | 2020-05-04 17:03 | NUR ---
DR. PEREZ STATED ON ROUNDS THIS AM TO ASK HOSPITALIST TO CONSIDER STARTING TUBE FEEDING. ARTIST'S MANAGER ROUNDED AND GAVE RECOMMENDATION OF JEVITY 1.5 WITH A GOAL RATE OF 55MLS/HR. DR. NINA AND DR. FREEMAN STATED THAT THEY WERE OK WITH THIS LONG NEPHROLOGY WAS OK WITH THIS RECOMMENDATION. DR. PEREZ CALLED AND DR. CHOU RETURNED CALLED. DR. CHOU STATES HE IS OKAY WITH RECOMMENDATION LONG WE START FEEDING SLOW AT 10MLS/HR AND INCREASE BY 10MLS/HR Q 4 HRS. NEPHROLOGY WILL CHECK LABS IN AM AND MAKE ANY ADJUSTMENTS IF NEEDED IN AM TOMORROW.
--- NOTE | 2020-05-04 17:16 | NUR ---
DR. ALEXANDER ROUNDED ON PT AND STATED TO PASS ALONG TO PSYCHIATRIC TECHNICIAN ASSISTANT THAT ON NEXT SEDATION VACATION TO MAKE SURE TO NOTE IF PT MOVES LOWER EXTREMITIES. DURING DAY SHIFT SEDATION VACATION, PT MOVED BILAT UPPER EXTREMITIES WITH NON PURPOSEFUL MOVEMENTS BUT DID NOT MOVE BILAT LOWER EXTREMITIES.
[2020-05-05] VITALS (88 sets, daily range): BP systolic 88–133; BP diastolic 46–71
--- NOTE | 2020-05-05 00:11 | NUR ---
1915 SR ON MONITOR. HR IS 82 [id number] SEDATION VACATION. PT TOOK EXTRA TIME TO WAKE UP. PT ABLE TO FOLLOW COMMANDS TO DIRECTOR OF NEUROLOGY HAND AND WIGGLE TOES. PT W/D FROM PAINFUL STIMULI. PT OPENS EYES AND TRACKS. SUCTIONED PT/ORAL CARE. 1932 AFIB RVR ON MONITOR. HR JUMPING FROM 110s - 180s. [address] FREEMAN OF RHYTHM CHANGE. ORDER TO START CARDIZEM GTT. STARTED CARDIZEM GTT. RUNNING AT 10 MG/HR. 2117 PT CONVERTED FROM AFIB TO SB. HR 56.
[2020-05-05 05:11] LABS: BE(vivo) 4.3 mmol/L (-2 to +3); HCO3 28.5 mmol/L (22.0-26.0); PCO2 40.9 mmHg (35.0-45.0); PO2 157.5 mmHg (80.0-100.0); pH 7.461 (7.360-7.450); sO2 99.1 % (92.0-98.0)
[2020-05-05 05:36] LABS: HEMATOCRIT 28.5 % (42.0-52.0); HEMOGLOBIN 9.1 gm/dL (14.0-18.0); MCH 30.8 pg (26.0-34.0); MCHC 32.1 g/dL (28.0-37.0); MCV 95.8 fL (80.0-100.0); RBC 2.97 mil/uL (4.50-6.00); RDW 14.7 % (10.5-14.5)
[2020-05-05 05:46] LABS: CALCIUM 9.1 mg/dL (8.5-10.1); MAGNESIUM 1.6 mg/dL (1.8-2.4); POTASSIUM 4.5 mmol/L (3.5-5.1)
[2020-05-05 06:03] LABS: CREATININE 1.8 mg/dL (0.7-1.3)
--- NOTE | 2020-05-05 08:09 | NUR ---
PATIENT PLACED ONB CPAP MODE THIS MORNNG AROUND 0800. PATIENT TOLERATING IT WELL, RT TO RETURN AORUND 0830 TO DRAW AN ABG.
[2020-05-05 09:12] LABS: BE(vivo) 0.8 mmol/L (-2 to +3); HCO3 24.8 mmol/L (22.0-26.0); PCO2 37.5 mmHg (35.0-45.0); PO2 140.5 mmHg (80.0-100.0); pH 7.439 (7.360-7.450); sO2 98.9 % (92.0-98.0)
[2020-05-05] MEDS ORDERED: CLOZAPINE25 MG PO (10:57)
[2020-05-05] MEDS ORDERED: SEROQUEL 50 MG50 M1 PO (10:58)
[2020-05-05 22:06] LABS: ADENOVIRUS Negative (Negative); INFLUENZA A Negative (Negative); INFLUENZA B Negative (Negative); METAPNEUMOVIRUS Negative (Negative); PARAINFLUENZA 1 Negative (Negative); PARAINFLUENZA 2 Negative (Negative); PARAINFLUENZA 3 Negative (Negative); RHINOVIRUS Negative (Negative); RSV A Negative (Negative); RSV B Negative (Negative)
[2020-05-06] VITALS (16 sets, daily range): BP systolic 108–160; BP diastolic 60–98
[2020-05-06 04:49] LABS: CALCIUM 9.6 mg/dL (8.5-10.1); CREATININE 1.7 mg/dL (0.7-1.3); MAGNESIUM 1.7 mg/dL (1.8-2.4); POTASSIUM 4.7 mmol/L (3.5-5.1)
[2020-05-06 05:41] LABS: HEMATOCRIT 30.4 % (42.0-52.0); HEMOGLOBIN 9.6 gm/dL (14.0-18.0); MCH 30.3 pg (26.0-34.0); MCHC 31.5 g/dL (28.0-37.0); RBC 3.16 mil/uL (4.50-6.00); RDW 14.4 % (10.5-14.5); WBC 13.7 thou/uL (4.0-11.0)
--- NOTE | 2020-05-06 06:38 | NUR ---
PT PROGRESSING TOWARDS PLAN OF CARE. SR/ST ON MONITOR WITH INTERMITTENT RUNS OF AFIB. VSS. PT TOLERATING SMALL SNACKS. BLOOD GLUCOSE CONTROLLED. PT DENIES PAIN. ALERT/ORIENTED TO SELF. MAKES NO ATTEMPT TO PULL LINES. RESTRAINTS DISCONTINUED. TRANSFER ORDERS FOR CCU.
--- NOTE | 2020-05-06 11:24 | NUR ---
chart review. he was extubated yesterday. tosin from [facility]. updates to be sent to [facility].
--- NOTE | 2020-05-06 14:50 | NUR ---
FAXED CLINICAL UPDATE TO [facility] RECEIVED CONFIRMATION AND SPOKE WITH COSTA SMITH) AT FACILITY HE WILL BE FLIGHT OPERATIONS ENGINEER THIS WEEKEND FOR DISCHARGES IF NEEDED CALL HIM AT [phone] THEY WILL BE ABLE TO TAKE PT OVER THE WEEKEND IF DISCHARGED.
--- NOTE | 2020-05-06 15:30 | NUR ---
TOOK OVER PATIENT AT 0645. PATIENT HAS ORDERS TO GO TO CCU. PATIENTS MAG WAS 1.[address] LOYA ORDERED 2MG.
[2020-05-06 16:06] LABS: CSF VDRL Non Reactive (Non Rea:<1:1)
--- NOTE | 2020-05-06 18:18 | NUR ---
PT. ARRIVED AT FLOOR AROUND 1630; PT. ALERT; DURING ASSESSMENT ALERT TO PERSON; ABLE TO FOLLOW SOME COMMANDS; ANSWER YES/NO QUESTION; NO C/O PAIN; PM MEDICATIONS GIVEN; SR ON THE MONITOR; ABLE TO SWALLOW PILLS OK; TOLERATE WELL DINNER; ASSESSMENT CHARGED; FOLLOWING POC; WILL PASS ON REPORT;
[2020-05-07 04:00] VITALS: BP 164/69
[2020-05-07 04:49] LABS: CALCIUM 9.4 mg/dL (8.5-10.1); CREATININE 1.4 mg/dL (0.7-1.3); POTASSIUM 3.9 mmol/L (3.5-5.1)
[2020-05-07 05:08] LABS: HEMATOCRIT 31.1 % (42.0-52.0); MCH 30.8 pg (26.0-34.0); MCV 96.1 fL (80.0-100.0); RBC 3.24 mil/uL (4.50-6.00); RDW 14.4 % (10.5-14.5); WBC 13.9 thou/uL (4.0-11.0)
--- NOTE | 2020-05-07 06:59 | NUR ---
PT HAD BRIEF EPISODE OF AFIB RVR THIS MORNING, SPECIALIST FIELD ENGINEER NOTIFIED; ORDERS RECIEVED; EKG OBTAINED, BACK TO SR; METOPROLOL GIVEN; PT IS RESTING AT THIS TIME; NO FURTHER NEEDS AT THIS TIME, WILL PASS ON REPORT
[2020-05-07 07:49] VITALS: BP 145/97
[2020-05-07 08:01] LABS: HSV PCR SOURCE CSF
[2020-05-07 11:34] VITALS: BP 119/83
--- NOTE | 2020-05-07 12:59 | EKG ---
[facility] [place] [address] ELECTROCARDIOGRAM REPORT Name: CHIRS RENAE Room #: 205- ADM IN M.R.#: [id number] Admission: 05/02/20 Attend Phys: Martinez Alonzo MD Discharge: Date of : 55 Report #: [id number] THIS REPORT FOR: cc: Sincere Figueroa,Sincere Arana,Max Zuleta MD ~ THIS REPORT FOR: //name// [facility] Test Date: 2020-05-07 Test Time: 06:51:45 Pat Name: CHRIS RENAE Department: Room: 205 Gender: M Clinical Trials Manager: ZMCNABB : 1955 Requested By: Tere Saavedra Order Number: [id number] MD: Max Soto Measurements Intervals [place] Rate: 84 P: 70 MA: 158 QRS: 12 QRSD: 108 T: 127 QT: 345 QTc: 408 Interpretive Statements Sinus rhythm Atrial premature complexes early transition Repol abnrm clinical correlation suggested Compared to ECG 05/01/2020 23:06:38 No significant change Electronically Signed On 05-07-2020 12:59:03 CDT by Max Soto [email or web address] <ELECTRONICALLY SIGNED> By: Max Soto MD 05/07/20 1259 0651 0651 Max Soto MD /EPI
--- NOTE | 2020-05-07 13:05 | EKG ---
[facility] [place] [address] ELECTROCARDIOGRAM REPORT Name: CHRIS RENAE Room #: 205- ADM IN M.R.#: [id number] Admission: 05/02/20 Attend Phys: Martinez Alonzo MD Discharge: Date of : 55 Report #: [id number] THIS REPORT FOR: cc: Sincere Figueroa,Sincere Arana,Max Zuleta MD ~ THIS REPORT FOR: //name// [facility] Test Date: 2020-05-07 Test Time: 10:18:40 Pat Name: CHRIS RENAE Department: Room: 205 Gender: M Service Agent: Britt BLACKMON : 1955 Requested By: Tere Santos Order Number: [id number] MD: Max Soto Measurements Intervals [place] Rate: 111 P: ND: QRS: 6 QRSD: 97 T: 117 QT: 341 QTc: 464 Interpretive Statements Atrial fibrillation early transition LVH with secondary repolarization abnormality Compared to ECG 05/07/2020 06:51:45 Atrial fibrillation now present Electronically Signed On 05-07-2020 13:05:21 CDT by Max Soto [email or web address] <ELECTRONICALLY SIGNED> By: Max Soto MD 05/07/20 1305 1018 1018 Max Soto MD /EPI
--- NOTE | 2020-05-07 14:02 | NUR ---
PT'S HR UP TO 170S AROUND 0910. CALLED DR NINA, OBTAINED CARDIO CONSULT, MACHINE ETCHER KAMRAN REEDER GTT, BOLUS GIVEN AND GTT STARTED PER ORDERS, PT CONVERTED ON HIS OWN BACK TO SR, IS NOW IN 80S, DR NINA AWARE. WILL MONITOR.
[2020-05-07 15:24] VITALS: BP 128/70
[2020-05-07 16:06] LABS: HSV 1 DNA Negative (Negative); HSV 2 DNA Negative (Negative)
[2020-05-07 19:00] VITALS: BP 117/62
--- NOTE | 2020-05-08 03:30 | NUR ---
ASSUMED CARE OF PATIENT AT 1900. PATIENT ON ROOM AIR. NO S/S OF RESPIRATORY DISTRESS. PATIENT HAD A PLEASANT AFFECT UNTIL APPROXIMATELY 0300 WHEN HE WAS FOUND PULLING OFF HIS COLOSTOMY. PATIENT ATTEMPTED TO STRIKE STAFF WITH WATER PITCHER WHILE ATTEMPTING TO PROVIDE CARE. PATIENT ALSO CALLED STAFF "BITCHES" AND "STANKING HOE". DURING THIS TIME PATIENT IN SINUS TACH WITH HR UP TO 150s. PATIENT HEART RATE DECREASED TO 110s ONCE PATIENT CALMED DOWN.
[2020-05-08 05:51] LABS: CREATININE 1.4 mg/dL (0.7-1.3); HEMATOCRIT 31.2 % (42.0-52.0); MAGNESIUM 1.6 mg/dL (1.8-2.4); MCH 30.7 pg (26.0-34.0); MCHC 32.1 g/dL (28.0-37.0); MCV 95.7 fL (80.0-100.0); RBC 3.26 mil/uL (4.50-6.00); RDW 14.4 % (10.5-14.5); WBC 15.2 thou/uL (4.0-11.0)
[2020-05-08 08:28] VITALS: BP 147/91
[2020-05-08 12:01] VITALS: BP 160/92
[2020-05-08 16:16] VITALS: BP 140/90
--- NOTE | 2020-05-08 18:48 | 2DMMODE ---
[facility] [place] [address] 2 D/M-MODE ECHOCARDIOGRAM Name: CHRIS RENAE Room #: 205-P ADM IN M.R.#: [id number] Admission: 05/02/20 Attend Phys: Martinez Alonzo MD Discharge: Date of : 55 Report #: [id number] THIS REPORT FOR: cc: Sincere Figueroa,Sincere Arana,Max Zuleta MD ~ APPROVED REPORT Study performed: 05/08/2020 13:29:58 EXAM: Comprehensive 2D, Doppler, and color-flow Echocardiogram Patient Location: Bedside Room #: 205 Status: on-call BSA: 2.17 HR: 93 bpm BP: 160/92 mmHg Rhythm: NSR Other Information Study Quality: Adequate/low window Indications Afib with RVR 2D Dimensions IVSd: 13.28 (7-11mm) LVOT Diam: 21.83 (18-24mm) LVDd: 38.92 mm PWd: 12.52 (7-11mm) LVDs: 24.93 (25-40mm) Aortic Root: 38.31 mm Aortic Valve AoV Peak Evan.: 1.86 m/s AO Peak Gr.: 13.87 mmHg LVOT Max P.04 mmHg LVOT Max V: 1.74 m/s URSZULA Vmax: 3.49 cm2 Mitral Valve E/A Ratio: 0.8 MV Decel. Time: 137.90 ms MV E Max Evan.: 0.67 m/s MV A Evan.: 0.79 m/s MV PHT: 39.99 ms [facility] [email or web address] [address] 2 D/M-MODE ECHOCARDIOGRAM Name: CHRIS RENAE Room #: 205-P ADM IN M.R.#: [id number] Admission: 05/02/20 Attend Phys: Martinez Alonzo MD Discharge: Date of : 55 Report #: [id number] IVRT: 93.43 ms Left Ventricle The left ventricle is normal size. There is normal LV segmental wall motion. Mild concentric left ventricular hypertrophy. Left ventricular systolic function is normal. LVEF is 65%. Mild diastolic dysfunction is present (impaired relaxation pattern). Right Ventricle The right ventricle is normal size. The right ventricular systolic function is normal. Atria The left atrium size is normal. The right atrium size is normal. Aortic Valve The aortic valve is not well visualized. No aortic regurgitation is present. There is no aortic valvular stenosis. Mitral Valve The mitral valve is normal in structure. There is no mitral valve regurgitation noted. No evidence of mitral valve stenosis. Tricuspid Valve The tricuspid valve is normal in structure. There is no tricuspid valve regurgitation noted. Unable to assess PA pressure. Pulmonic Valve Pulmonic valve is not well visualized. Great Vessels The aortic root is normal in size. IVC is normal in size and collapses >50% with inspiration. Pericardium There is no pericardial effusion. <Conclusion> The left ventricle is normal size. LVEF is 65%. The aortic valve is not well visualized. The mitral valve is normal in structure. The tricuspid valve is normal in structure. [facility] [address] [place] [address] 2 D/M-MODE ECHOCARDIOGRAM Name: CHRIS RENAE Room #: 205-P [facility] IN [facility].#: [id number] Admission: 05/02/20 Attend Phys: Martinez Alonzo MD Discharge: Date of : 55 Report #: [id number] Pulmonic valve is not well visualized. There is no pericardial effusion. <ELECTRONICALLY SIGNED> By: Max Soto MD 05/08/201846 46 46 Max Soto MD /INF
[2020-05-08 19:56] VITALS: BP 163/75
[2020-05-09 00:13] VITALS: BP 138/77
[2020-05-09 04:16] VITALS: BP 152/85
--- NOTE | 2020-05-09 07:40 | NUR ---
PATIENT ON CARDIZEM GTT.PT HR IS IN THE 80'S.PLEASANTLY CONFUSED.PT DIDN'T SLEEP BECAUSE HE IS WATCHING TV ALL NIGHT.COLOSTOMY BAG CHANGED.STOMA PINK.MONITOR SHOWS SR.POC CONTINUED.
[2020-05-09 08:00] VITALS: BP 141/77
[2020-05-09 11:18] VITALS: BP 141/62
[2020-05-09 12:02] LABS: CALCIUM 8.1 mg/dL (8.5-10.1); MAGNESIUM 1.7 mg/dL (1.8-2.4); POTASSIUM 3.5 mmol/L (3.5-5.1)
[2020-05-09] MEDS ORDERED: DILTIAZEM 24HR120 M1 PO (12:09)
[2020-05-09] MEDS ORDERED: CEFDINIR300 MG PO (14:27)
--- NOTE | 2020-05-09 14:46 | NUR ---
Nutrition: Recommend D/C renal diet restriction aspect of diet order.
--- NOTE | 2020-05-09 15:11 | NUR ---
PT DISCHARGING TODAY BACK TO [facility] SKILLED FAXED DC ORDERS/SUMMARY TO FACILITY RECEIVED CONFIRMATION SPOKE WITH COSTA SMITH) AT [facility] AND THEY DO NOT HAVE TRANSPORT SO TRANSPORT ARRANGED WITH [facility] FOR [phone] TODAY. PT HAS NO FAMILY TO NOTIFY, UNIT NOTIFIED AND CHART COPY PER US. RN TO CALL REPORT TO [phone],
[2020-05-09 15:56] VITALS: BP 119/71
== END 2020-05-09 18:51 | DRG 871 ==
LOC: ER 22:01 → EROBS 05-02 03:29 → ICU 05-02 03:29 → 2N 05-06 16:15
PROVIDERS: Emergency Medicine; Hospitalist; Internal Medicine; Internal Medicine Pulmonary Disease; Nurse Practitioner; Nurse Practitioner Family; Specialist; ADMIT Internal Medicine; ATTEND Internal Medicine
PROC: 5A1945Z Respiratory Ventilation, 24-96 Consecutive Hours (ICD-10-PCS; principal; 2020-05-02)
PROC: 0BH17EZ Insertion of Endotracheal Airway into Trachea, Via Natural or Artificial Opening (ICD-10-PCS; principal; 2020-05-02)
PROC: 02HV33Z Insertion of Infusion Device into Superior Vena Cava, Percutaneous Approach (ICD-10-PCS; principal; 2020-05-02)
PROC: 009U3ZX Drainage of Spinal Canal, Percutaneous Approach, Diagnostic (ICD-10-PCS; 2020-05-04)
PROC: B01B1ZZ Fluoroscopy of Spinal Cord using Low Osmolar Contrast (ICD-10-PCS; 2020-05-04)
DX: A41.9 Sepsis, unspecified organism (principal); J96.01 Acute respiratory failure with hypoxia; R65.21 Severe sepsis with septic shock; G92 Toxic encephalopathy; N17.0 Acute kidney failure with tubular necrosis; I48.20 Chronic atrial fibrillation, unspecified; F41.9 Anxiety disorder, unspecified; N40.0 Benign prostatic hyperplasia without lower urinary tract symptoms; G20 Parkinson's disease; F10.11 Alcohol abuse, in remission; E87.5 Hyperkalemia; E16.2 Hypoglycemia, unspecified; I95.9 Hypotension, unspecified; T68.XXXA Hypothermia, initial encounter; E87.6 Hypokalemia; I48.0 Paroxysmal atrial fibrillation; F25.9 Schizoaffective disorder, unspecified; E83.42 Hypomagnesemia; Z20.828 Contact with and (suspected) exposure to other viral communicable diseases; Z79.899 Other long term (current) drug therapy; Z88.0 Allergy status to penicillin
CPT/HCPCS: 10078; 10081